=== PATIENT | female | born 1990 | race Hispanic/Latino ===

== ENCOUNTER 2016-07-06 09:59 | Emergency (ER) | payer SELFPAY ==
[2016-07-06 10:16] VITALS: BP 153/96; PULSE 95; RESP 20; TEMP 98.6
[2016-07-06] MEDS ORDERED: Sodium Chloride 0.9% 1,000 ML IV STA (10:28)
[2016-07-06] MEDS ORDERED: Iohexol 240 (50 ml) PO ONE (10:28)
--- NOTE | 2016-07-06 10:44 | ED PDOC ---
HPI: Abdomen Time Seen by Provider: 07/06/16 10:17 Chief Complaint (Nursing): GI Problem History Per: Patient History/Exam Limitations: no limitations Onset/Duration Of Symptoms: Hrs Current Symptoms Are (Timing): Still Present Severity: Moderate Location Of Pain/Discomfort: Diffuse, Other (lower) Associated Symptoms: Nausea, Vomiting. denies: Fever, Chills Additional Complaint(s): 26-year-old female, PMHx includes Multiple Sclerosis, and SMA Syndrome presents to the emergency department with complaints of abdominal pain. Patient states she woke up at 03:30 this morning with nausea, non-bloody/non-bilious vomiting and diffuse abdominal pain. Patient has not had bowel movement yet. Pain is persistent in nature and non-radiating. States this feels similar to bowel obstruction she has experienced in the past. Patient notes that she took Zofran and Dilaudid PO for symptoms, but could not keep them down, resulting in her coming to the ED for evaluation. Denies back pain, dizziness, diarrhea, symptoms, fevers, or any other associated symptoms. No other complaints at this time. Of note, patient has had four abdominal surgeries for SMA, last sx in Past Medical History Reviewed: Historical Data, Nursing Documentation, Vital Signs Vital Signs: Last Vital Signs Temp 98.6 F 07/06/16 10:15 Pulse 95 H 07/06/16 10:15 Resp 20 07/06/16 10:15 BP 153/96 H 07/06/16 10:15 Pulse Ox - Surgical History Surgical History: Tonsillectomy - Family History Family History: States: Unknown Family Hx - Allergies Allergies/Adverse Reactions: Allergies Allergy/AdvReac Type Severity Reaction Status Date / Time Penicillins Allergy Mild RASH Verified 12/03/15 10:29 amoxicillin Allergy RASH Verified 12/03/15 10:38 NSAIDS (Non-Steroidal Allergy SWELLING Verified 12/03/15 10:37 Anti-Inflamma Review of Systems ROS Statement: Except As Marked, All Systems Reviewed And Found Negative Constitutional: Negative for: Fever, Chills Cardiovascular: Negative for: Chest Pain, Palpitations Gastrointestinal: Positive for: Nausea, Vomiting, Abdominal Pain. Negative for : Diarrhea Genitourinary Female: Negative for: Dysuria, Frequency, Vaginal Discharge, Vaginal Bleeding Musculoskeletal: Negative for: Neck Pain, Back Pain Skin: Negative for: Rash Neurological: Negative for: Weakness, Numbness, Headache, Dizziness Physical Exam - Reviewed Nursing Documentation Reviewed: Yes Vital Signs Reviewed: Yes - Physical Exam Appears: Positive for: Non-toxic, No Acute Distress Head Exam: Positive for: ATRAUMATIC, NORMOCEPHALIC Skin: Positive for: Warm, Dry. Negative for: Rash Eye Exam: Positive for: Normal appearance, EOMI, PERRL Neck: Positive for: Painless ROM Cardiovascular/Chest: Positive for: Regular Rate, Rhythm Respiratory: Positive for: Normal Breath Sounds. Negative for: Accessory Muscle Use Gastrointestinal/Abdominal: Positive for: Soft, Tenderness (diffuse). Negative for: Distended, Guarding, Rebound Extremity: Positive for: Normal ROM Neurologic/Psych: Positive for: Alert, Oriented - Laboratory Results Result Diagrams: 07/06/16 10:51 07/06/16 10:51 - Progress ED Course And Treament: 1336: Stable. AAOx3. Pain free. Now stating that her doctor's office spoke with her. They said the doctor said to come to his hospital and he will admit her. Pt. provided number for office, but the number goes to voice mail and no response. Argumentative. Demanding to be released right away. Has capacity to make decisions. Mini Mental Status Exam intact. Pt. states she is out of town and here on the weekends to help mom and here today on Tuesday. This is her second visit to this ER for same abd pain. 1345: Pt. not in room. Left before able to officially AMA. Medical Decision Making Medical Decision Making: Impression Abdominal pain, nausea/vomiting. Prior Visits: Notes and records from previous visits were reviewed. Patient was seen in ER on 12/03/15 for similar complaint. Patient had an abdominal CT scan that showed: post-surgical changes with bowel anastamotic suture material within both left and right upper quadrants with wall thickening of unclear significance. Gastrostomy & Jujenostomy tube present. 1.9 x 2.8 RT. ovarian cyst Plan * CT Abd/Pel w/ contrast * CMP, Lipase * CBC * Dilaudid, IVF, Zofran * Reassess and Disposition Scribe Attestation: Documented by Yolanda Garcia, acting as a scribe for Sony Cedeno MD. Provider Scribe Attestation: All medical record entries made by the Scribe were at my direction and personally dictated by me. I have reviewed the chart and agree that the record accurately reflects my personal performance of the history, physical exam, medical decision making, and the department course for this patient. I have also personally directed, reviewed, and agree with the discharge instructions and disposition. Disposition - Clinical Impression Clinical Impression: Abdominal pain - Patient ED Disposition Is Patient to be Admitted: No - Disposition Referrals: [facility] [Outside] - 07/06/16 Disposition: Against Medical Advice Disposition Time: 13:38 Condition: STABLE Additional Instructions: You are going against medical advice. You can or have decreased functioning from your abdominal and stomach pain. You are taking your own risk. Return right away for further evaluation and treatment. You have refused a catscan. Instructions: Acute Abdominal Pain (ED)
[2016-07-06] MEDS ORDERED: Iohexol 240 (50 ml) ONE (10:46)
[2016-07-06 10:55] LABS: BASO % 0.5 % (0.0-2.0); EOS # 0.2 K/uL (0.0-0.7); EOS % 3.3 % (0.0-4.0); HEMATOCRIT 35.9 % (34.0-47.0); LYMPH # 1.7 K/uL (1.0-4.3); LYMPH % 28.6 % (20.0-40.0); MEAN CELL VOLUME 79.7 fl (81.0-99.0); MEAN CORPUSCULAR HEMOGLOBIN 25.7 pg (27.0-31.0); MEAN CORPUSCULAR HGB CONC 32.2 g/dL (33.0-37.0); MEAN PLATELET VOLUME 8.8 fl (7.2-11.7); MONO # 0.3 K/uL (0.0-0.8); MONO % 5.5 % (0.0-10.0); NEUT # 3.7 K/uL (1.8-7.0); NEUT % 62.1 % (50.0-75.0); NRBC % 0.1 % (0.0-0.0); RED CELL DISTRIBUTION WIDTH 23.8 % (11.5-14.5)
[2016-07-06 11:07] LABS: ALB/GLOB RATIO 1.5 (1.0-2.1); ALKALINE PHOSPHATASE 77 U/L (38-126); ALT/SGPT 8 U/L (9-52); AST/SGOT 28 U/L (14-36); BILIRUBIN,TOTAL 0.5 mg/dl (0.2-1.3); CALCIUM 9.7 mg/dL (8.4-10.2); CARBON DIOXIDE 21 mmol/L (22-30); CHLORIDE 107 mmol/L (98-107); GFR AFRICAN-AMERICAN > 60; GLUCOSE,RANDOM 77 mg/dL (65-105); LIPASE 44 U/L (23-300); SODIUM 143 mmol/l (132-148); TOTAL PROTEIN 7.6 G/DL (6.3-8.2)
[2016-07-06 11:08] LABS: POTASSIUM 5.1 MMOL/L (3.6-5.0)
[2016-07-06 11:26] LABS: BLOOD UREA NITROGEN 2 mg/dl (7-17)
[2016-07-06] MEDS ORDERED: HYDROmorphone 0.5 mg/0.5 ml ISec ONE (12:13)
--- NOTE | 2016-07-06 20:14 | CARD ---
APPROVED REPORT EKG Measurement Heart [id number] <Conclusion> Sinus tachycardia Biatrial enlargement Nonspecific ST abnormality Abnormal ECG
== END 2016-07-06 14:06 | disposition left against medical advice (07) ==
LOC: H.ER 09:59
DX: R10.9 Unspecified abdominal pain (principal); R11.2 Nausea with vomiting, unspecified; N83.201 Unspecified ovarian cyst, right side
CPT/HCPCS: 80053; 81025; 83690; 85025; 93005; 99283; J1170; J2405; J7040; Q9966